=== PATIENT | male | born 1960 | race Caucasian/White ===

== ENCOUNTER 2020-07-01 23:00 | Emergency (ER) | payer MEDICARE, MEDICAID ==
[~2020-07-01] VITALS: Ht 167.6 cm; Wt 68.2 kg
[~2020-07-01 23:00] MED LIST: TRIA5PAS DT
[2020-07-01 23:02] VITALS: BP 147/105
[2020-07-02] MEDS ORDERED: ibuprofen 200mg tablet PO ONE (00:10)
[2020-07-02] MEDS ORDERED: LIDOcaine 1% W/epiNEPHrine 1:200,000 10ml vial IJ ONE (00:10)
[2020-07-02] MEDS ORDERED: LIDOcaine 1% w/epiNEPHrine 1:200,000 30ml vial IJ ONE (00:15)
== END 2020-07-02 03:04 ==
LOC: ER 23:01
DX: S01.01XA Laceration without foreign body of scalp, initial encounter (principal); S01.312A Laceration without foreign body of left ear, initial encounter; S13.9XXA Sprain of joints and ligaments of unspecified parts of neck, initial encounter; S00.01XA Abrasion of scalp, initial encounter; M54.2 Cervicalgia; R42 Dizziness and giddiness; X58.XXXA Exposure to other specified factors, initial encounter; Y93.89 Activity, other specified; Y92.89 Other specified places as the place of occurrence of the external cause; Y99.8 Other external cause status
CPT/HCPCS: 12002; 12011; 12013; 70450; 72125; 99285